=== PATIENT | male | born 1935 | race Caucasian/White ===

== ENCOUNTER → 2016-07-06 | Outpatient (CLI) | payer MEDICARE, OTHER ==
[~2016-07-06] MED LIST: ASPIRIN81 MG; CARDIZEM CD; COMBIVENT14.7 GM; EPIVIR300 MG; FOLIC ACID1 MG; IBUPROFEN800 MG; K-DUR20 ME2; LANTUS100 U/M1; LOPID600 MG; LORTAB 7.51 TAB 7.5/; LOSARTAN-HCTZ1 EAC2; NOVOLOG100 U/M1; PLAVIX; PREDNISONE; PROTONIX; PULMICORT0.5 MG/2 M; XOPENEX HFA15 GM
[2016-07-06 10:18] LABS: ALBUMIN SERUM 3.3 g/dL (3.5-5.0); ALKALINE PHOSPHATASE 59 U/L (32-92); ALT (SGPT) 10 U/L (10-40); AST (SGOT) 11 U/L (10-42); BLOOD UREA NITROGEN 21 mg/dL (9-23); CALCIUM SERUM 8.5 mg/dL (8.4-10.2); CARBON DIOXIDE 28 mmol/L (22-31); CHLORIDE 105 mmol/L (100-111); CHOLESTEROL 215 mg/dL (0-200); CREATININE SERUM 0.6 mg/dL (0.6-1.4); GLOM FILT RATE Estimated 96.3 mL/min (>60); GLUCOSE FASTING 91 mg/dL (70-110); HDL CHOLESTEROL 50 mg/dL (29-75); LDL CHOLESTEROL 120 mg/dL (-130); LDL/HDL RATIO 2 RATIO (0-4); POTASSIUM 3.2 mmol/L (3.5-5.1); PROTEIN TOTAL SERUM 6.4 g/dL (6.0-8.3); SODIUM 139 mmol/L (135-145); TRIGLYCERIDES 226 mg/dL (10-160)
[2016-07-06 10:23] LABS: BILIRUBIN,TOTAL <0.1 mg/dL (0.2-2.0)
[2016-07-07 18:35] LABS: MICROALB UR (PNL) 0.8 mg/dL (***)
== END | disposition home or self-care (01) ==
LOC: SLAB 08:17
DX: E78.5 Hyperlipidemia, unspecified (principal); N08 Glomerular disorders in diseases classified elsewhere; E11.65 Type 2 diabetes mellitus with hyperglycemia; I10 Essential (primary) hypertension
CPT/HCPCS: 36415; 80053; 80061; 82043; 82570; 83036; 84443